=== PATIENT | female | born 1980 | race Caucasian/White ===

== ENCOUNTER 2022-10-26 15:37 | Emergency (ER) | payer MEDICAID ==
[~2022-10-26] VITALS: Ht 160 cm; Wt 75.0 kg
[2022-10-26] MEDS ORDERED: BENZ100C86 MT (17:23)
[2022-10-26 17:25] VITALS: BP 139/73
== END 2022-10-26 17:38 | disposition home or self-care (01) ==
LOC: ER 15:37
DX: R05.9 Cough, unspecified (principal); R07.89 Other chest pain; E11.9 Type 2 diabetes mellitus without complications; E78.00 Pure hypercholesterolemia, unspecified; Z20.822 Contact with and (suspected) exposure to COVID-19
CPT/HCPCS: 71046; 87426; 93005; 99285; C9803